=== PATIENT | female | born 1970 | race Caucasian/White ===

== ENCOUNTER → 2018-07-23 | Outpatient (CLI) | payer BC ==
[2018-07-23 17:59] LABS: BACTERIA (WET MOUNT) 3+ BACTERIA SEEN; EPITHELIALS (WET MOUNT) 3+ EPITHELIALS SEEN; T.VAGINALIS (WET MOUNT) TRICHOMONAS SEEN; WBCS (WET MOUNT) 4+ WBCS SEEN; YEAST (WET MOUNT) NO YEAST SEEN
[2018-07-23 18:00] LABS: RBCS (WET MOUNT) 1+ RBCS SEEN
[2018-07-23 19:27] LABS: CHLAM PCR NOT DETECTED (NOT DETECT); GON PCR DETECTED (NOT DETECT)
== END ==
LOC: LAB 17:52
PROVIDERS: ATTEND Nurse Practitioner Acute Care
DX: N89.8 Other specified noninflammatory disorders of vagina (principal); R30.0 Dysuria
CPT/HCPCS: 87086; 87088; 87210; 87491; 87591

== ENCOUNTER 2020-04-21 08:50 | Emergency (ER) | payer BC ==
[2020-04-21] MEDS ORDERED: FAMOTIDINE INJ/PF 20 MG/2 ML SDV IV ONE (08:57)
[2020-04-21] MEDS ORDERED: METHYLPREDNISOLONE INJ 40 MG/1 ML SDV IV ONE (08:57)
--- NOTE | 2020-04-21 09:02 | ER Document Report ---
ED General - General Stated Complaint: POSSIBLE ALLERGIC REACTION Time Seen by Provider: 04/21/20 08:52 Primary Care Provider: TIANA SANABRIA NP [NURSE PRACTITIONER] - Follow up as needed Notes: 49-year-old female with a history of allergies presents with leg swelling rash abdominal cramping with nausea throat tightness chest tightness and wheezing after an exposure to multiple fire ant bites. EMS gave Benadryl and epinephrine and she is improved. Exposure was 1 hour ago meds were 20 minutes ago. Does not own an EpiPen. She feels much better now. TRAVEL OUTSIDE OF THE [place] IN LAST 30 DAYS: No - Related Data Allergies/Adverse Reactions: ant Allergy (Severe, Uncoded 04/21/20 09:06) Past Medical History - Social History Smoking Status: Never Smoker Family History: None Review of Systems - Review of Systems Notes: REVIEW OF SYSTEMS GEN: Denies fever, chills, weight loss ENT: Swelling and tightness EYES: Denies blurry vision, eye pain, discharge CV: Tightness RESP: Shortness of breath GI: No cramping MSK: Denies joint pain/swelling, edema, SKIN itchy rash s LYMPH: Denies swollen glands/lymph nodes NEURO: Denies headache, focal weakness or numbness, dizziness PSYCH: Denies depression, suicidal or homicidal ideation PHYSICAL EXAMINATION General: No acute distress, well-nourished Head: Atraumatic, normocephalic ENT: Mouth normal, oropharynx moist, no exudates or tonsillar enlargement Eyes: Conjunctiva normal, pupils equal, lids normal Neck: No JVD, supple, no guarding CVS: Normal rate, regular rhythm, no murmurs Resp: No resp distress, equal and normal breath sounds bilaterally GI: Nondistended, soft, no tenderness to palpation, no rebound or guarding Ext: No deformities, no edema, normal range of motion in upper and lower ext Back: No CVA or midline TTP Skin: Kristian confluent urticaria on both inner thighs just proximal to multiple fire ant bites/vesicles on both sides Lymphatic: No lymphadeopathy noted Neuro: Awake, alert. Face symmetric. GCS 15. Physical Exam - Vital signs Vitals: Temp Pulse Resp BP Pulse Ox 97.3 F 64 16 103/72 100 04/21/20 09:05 04/21/20 09:05 04/21/20 09:05 04/21/20 09:05 04/21/20 09:05 Course - Re-evaluation Re-evalutation: 04/21/20 09:02 Partially treated anaphylaxis plus or minus shock. Still has itching but symptoms are generally improved. Will add Pepcid and steroids and observe closely for need for second dose of epi. 04/21/20 14:51 Stable in ED. Asking to leave. Has not been off for the full period time but is reliable will discharge with EpiPen steroids and instructions for outpatient antihistamine I have discussed with the patient there likely diagnosis, aftercare plan, follow-up plans and my usual and customary return precautions. They verbalized understanding of this. - Vital Signs Vital signs: Temp Pulse Resp BP Pulse Ox 97.3 F 72 14 115/58 L 100 04/21/20 09:05 04/21/20 10:14 04/21/20 10:14 04/21/20 10:14 04/21/20 10:14 Critical Care Note - Critical Care Note Total time excluding time spent on procedures (mins): 31 Comments: The above patient is critically ill. Not including procedures, but including direct re-evaluations, speaking with patient and/or consultants, interpreting results, and documenting, I spent the total amount of minute listed listed above on critical care time Discharge - Discharge Clinical Impression: Anaphylaxis Qualifiers: Encounter type: initial encounter Qualified Code(s): T78.2XXA - Anaphylactic shock, unspecified, initial encounter Condition: Good Disposition: HOME, SELF-CARE Instructions: Anaphylaxis Kit ([facility]) Additional Instructions: Please take Benadryl 50 mg or 2 tablets every 6 hours while awake for the next 3 days. Prescriptions: Prednisone [Deltasone 20 mg Tablet] 40 mg PO DAILY #10 tablet Epinephrine [Epipen] 0.3 mg IJ ONCE PRN #1 [email or web address] PRN Reason: Referrals: TIANA SANABRIA NP [NURSE PRACTITIONER] - Follow up as needed
[2020-04-21 10:15] VITALS: BP 115/58
== END 2020-04-21 10:14 | disposition home or self-care (01) ==
LOC: ER 08:50
DX: T63.421A Toxic effect of venom of ants, accidental (unintentional), initial encounter (principal); T78.2XXA Anaphylactic shock, unspecified, initial encounter; R07.89 Other chest pain; L50.9 Urticaria, unspecified; R10.9 Unspecified abdominal pain; R11.0 Nausea; R06.2 Wheezing; R09.89 Other specified symptoms and signs involving the circulatory and respiratory systems
CPT/HCPCS: 99284; 96374; 96375; J2920; S0028